=== PATIENT | female | born 1985 | race Caucasian/White ===

== ENCOUNTER 2019-02-20 11:52 | Inpatient (IN) | payer OTHER ==
[~2019-02-20] VITALS: Ht 180.3 cm; Wt 119.7 kg
--- NOTE | 2019-02-20 04:05 | NUR ---
PATIENT REFUSED PICTURE FOR HER WOUND. EXPLAINED TO HER REGARDING FACILITY PROTOCOL, PATIENT STILL REFUSED.
[~2019-02-20 11:52] MED LIST: CLON0.5T PO; DULO60CA45 PO; LEVE500T9 PO; LORA2TAB PO; QUET300T2 PO; ZOLP10TA2 PO
--- NOTE | 2019-02-20 11:56 | NUR ---
PT BIBRA39, SENT [facility] SCHVN FOR FEVER X 2 DAYS. PT C/O RECTAL PAIN, PT IS AAOX4, NOT IN RESPIRATORY DISTRESS, HOOKED TO MONITOR, KEPT RESTED AND COMFORTABLE, WILL CONTINUE TO MONITOR.
--- NOTE | 2019-02-20 12:14 | NUR ---
PT IV LINE ESTABLISHED, BLOOD DRAWN AND SENT TO LAB.
[2019-02-20] MEDS ORDERED: ONDANSETRON HCL/PF 4 MG/2 ML VIAL ONE (12:42)
[2019-02-20] MEDS ORDERED: MORPHINE SULFATE INJ 4 MG/ML DISP.SYRIN ONE ×2 (12:43→12:45)
--- NOTE | 2019-02-20 12:43 | NUR ---
PT SEEN AND EXAMINED BY .
--- NOTE | 2019-02-20 12:56 | NUR ---
AWARE OF PT ALLERGY TO PENICILLINS.
[2019-02-20 12:59] LABS: BASOPHILS # (AUTO) 0.1 /CMM (0.0-0.2); BASOPHILS % (AUTO) 0.4 % (0.0-2.0); EOSINOPHILS % (AUTO) 0.2 % (0.0-6.0); HEMATOCRIT 33 % (33-45); LYMPHOCYTES # (AUTO) 2.1 /CMM (0.8-4.8); MEAN CORPUSCULAR HGB CONC 33 g/dl (31.0-36.0); MEAN CORPUSCULAR VOLUME 90 fL (82-100); MONOCYTES # (AUTO) 1.9 /CMM (0.1-1.30); NEUTROPHILS # (AUTO) 19.3 /CMM (1.8-8.9); NEUTROPHILS % (AUTO) 82.4 % (43.0-81.0); PLATELET COUNT (AUTO) 411 /CMM (150-450); RED BLOOD CELL COUNT(AUTO) 3.69 MIL/uL (4.0-5.2); WHITE BLOOD COUNT (AUTO) 23.4 K/uL (4.3-11.0)
[2019-02-20] MEDS ORDERED: VANCOMYCIN 1 GM in IV D5W 250 ML IV ONE (13:00)
[2019-02-20] MEDS ORDERED: IV NS 0.9% 1,000 ML BAG IV ONE (13:00)
[2019-02-20] MEDS ORDERED: CEFEPIME 1 GM in IV D5W 50 ML IV ONE (13:00)
[2019-02-20] MEDS ORDERED: MORPHINE SULFATE INJ 2 MG/ML DISP.SYRIN IV ONE (13:00)
[2019-02-20 13:11] LABS: CALCIUM, SERUM 8.8 mg/dL (8.5-10.1); CREATININE 0.8 mg/dL (0.6-1.3); POTASSIUM 3.8 mmol/L (3.5-5.1)
[2019-02-20 13:25] LABS: ALBUMIN 2.5 g/dL (3.4-5.0); BILIRUBIN,DIRECT 1.3 mg/dL (0.0-0.2); BILIRUBIN,TOTAL 1.7 mg/dL (0.2-1.0); TOTAL PROTEIN, SERUM 7.6 g/dL (6.4-8.2)
--- NOTE | 2019-02-20 13:40 | NUR ---
PT IS WHEELED TO CT SCAN VIA [facility].
[2019-02-20] MEDS ORDERED: CT SWABBABLE VALVE TRANS SET 1 EA INFUS.SET MC ONE (13:42)
[2019-02-20] MEDS ORDERED: IOHEXOL-300 100 ML VIAL IV ONE (13:42)
[2019-02-20] MEDS ORDERED: IV NS 0.9% 250 ML IV ONE (13:42)
--- NOTE | 2019-02-20 13:47 | NUR ---
CALLED FOR MS BED
--- NOTE | 2019-02-20 14:00 | NUR ---
GOT BED 112-1
--- NOTE | 2019-02-20 14:15 | NUR ---
CALLED [facility] X 2
[2019-02-20] MEDS ORDERED: ALPR2TAB2 PO (14:17)
[2019-02-20] MEDS ORDERED: ARIP20TA4 PO (14:17)
[2019-02-20] MEDS ORDERED: ESCI10TA PO (14:17)
[2019-02-20] MEDS ORDERED: TOPI50TA PO (14:17)
--- NOTE | 2019-02-20 14:27 | NUR ---
CALLED KELLIE FOR REPORT NURSE NOT READY.
--- NOTE | 2019-02-20 14:45 | NUR ---
REPORT GIVEN TO RENATA TAI. AWAITING TRANSFER TO FLOOR.
--- NOTE | 2019-02-20 14:53 | NUR ---
SPOKED TO [facility] ARREDONDO, PT IS APPROVE TO BE ADMITTED
--- NOTE | 2019-02-20 15:25 | NUR ---
RN NOTES RECEIVE PATIENT FROM ER VIA MIGUEL, DX RECTAL ABSCESS, AOX 4, ON ROOM AIR, NO SOB, RESPIRATION UNLABORED, COMPLAIN OF RECTAL PAIN 4/10, REFUSED TO MOVE AND UNABLE TO DO COMPLETE BODY ASSESSMENT. UNABLE TO TAKE PHOTO DUE TO SEVERE PAIN. LEFT AC G18 FLUSHES WELL, SITE CLEAR. UNIT ORIENTATION DONE AND USE OF CALL LIGHT, BED LOW LOCKED, SAFETY MEASURES IN PLACE. ADMIT ORDERS CARRIED OUT. WILL CONT TO MONITOR.
[2019-02-20 15:35] VITALS: BP 94/65
[2019-02-20 16:00] VITALS: BP 94/65
[2019-02-20] MEDS ORDERED: ONDANSETRON HCL/PF 4 MG/2 ML VIAL IVP PRN (17:00)
[2019-02-20] MEDS ORDERED: MAGNESIUM HYDROXIDE 30 ML UDC PO PRN (17:00)
[2019-02-20] MEDS ORDERED: Z GUARD REMEDY 2 OZ OINT TP PRN (17:00)
[2019-02-20] MEDS ORDERED: ZOLPIDEM TARTRATE 5 MG TABLET PO PRN (17:00)
[2019-02-20] MEDS ORDERED: MAG HYDROX/AL HYDROX/SIMETH 30 ML UDC PO PRN (17:00)
[2019-02-20] MEDS ORDERED: HYDROCODONE/APAP 5/325MG 1 EACH TABLET PO PRN (17:00)
[2019-02-20] MEDS ORDERED: ACETAMINOPHEN 325 MG TABLET PO PRN (17:00)
[2019-02-20] MEDS ORDERED: FEE PK DOSING 1 MIN EA MC ONE (17:10)
[2019-02-20] MEDS: DOCUSATE SODIUM 100 MG CAPSULE PO SCH (17:22)
[2019-02-20] MEDS: HYDROMORPHONE INJ 2 MG/ML DISP.SYRIN IV PRN ×2 (17:23→21:24)
[2019-02-20] MEDS: TOPIRAMATE 25 MG TABLET PO SCH (17:23)
[2019-02-20] MEDS: IV NS 0.9% 1,000 ML IV PRN (17:24)
--- NOTE | 2019-02-20 18:49 | NUR ---
RN NOTES PATIENT RESTING COMFORTABLY. ALL NEEDS MET AT THIS TIME. IVF INFUSING WELL. NOT IN ANY DISTRESS. WILL ENDORSE TO NEXT SHIFT FOR ADITYA.
--- NOTE | 2019-02-20 19:25 | NUR ---
MS/RN NOTES PATIENT IN BED, SLEEPING COMFORTABLY AT THIS TIME, EASILY AROUSABLE, A/O X4, NO S/S OF ACUTE DISTRESS NOTED, BREATHING EVEN AND UNLABORED. NO SOB NOTED. PATIENT DENIES ANY PAIN AT THIS TIME. IV SITE WITH NO S/S OF INFECTION INFILTRATION, RUNNING WITH FLUIDS ORDERED, SAFETY MAINTAINED, BED AT THE LOWEST LOCKED POSITION, CLEAN AND DRY. CALL LIGHT WITHIN REACH. WILL CONTINUE TO MONITOR PER PLAN OF CARE.
[2019-02-20 20:00] VITALS: BP 105/54
--- NOTE | 2019-02-20 20:35 | NUR ---
PATIENT NOTED WITH ELEVATED TEMP 102.9. PATIENT DENIED COOLING MEASURE. PRN TYLENOL GIVEN ORDERED. WILL CONTINUE TO MONITOR
[2019-02-20] MEDS: VANCOMYCIN 1.25 GM in IV D5W 250 ML IV SCH (21:01)
[2019-02-20] MEDS: QUETIAPINE FUMARATE 100 MG TABLET PO SCH (21:02)
[2019-02-20] MEDS: LEVETIRACETAM (250 MG) 250 MG TABLET PO SCH (21:02)
--- NOTE | 2019-02-20 21:35 | NUR ---
PATIENT TEMPERATURE DROPPED DOWN TO 100.2 AXILLARY AT THIS TIME, WILL CONTINUE TO MONITOR.
[2019-02-21] MEDS: CEFEPIME 1 GM in IV D5W 50 ML IV SCH ×2 (00:31→12:25)
[2019-02-21 04:00] VITALS: BP 128/63
--- NOTE | 2019-02-21 04:00 | NUR ---
patient refused 4AM vanco trough, risks and benefits explained, patient still refused
--- NOTE | 2019-02-21 04:35 | NUR ---
called pharmacy regarding 5 AM vanco dose, per [facility] pharmacist, OK to give 5 AM vanco dose since patient getting Vanco for sepsis.
[2019-02-21] MEDS: VANCOMYCIN 1.25 GM in IV D5W 250 ML IV SCH ×3 (05:28→21:14)
--- NOTE | 2019-02-21 07:01 | NUR ---
MS/RN NOTES PATIENT IN BED, SLEEPING COMFORTABLY AT THIS TIME, EASILY AROUSABLE, A/O X4, NO S/S OF ACUTE DISTRESS NOTED, BREATHING EVEN AND UNLABORED. NO SOB NOTED. PATIENT DENIES ANY PAIN AT THIS TIME. IV SITE WITH NO S/S OF INFECTION INFILTRATION, RUNNING WITH FLUIDS ORDERED, ALL DUE MEDS GIVEN ORDERED, TOLERATED WELL. PATIENT PERIRECTAL ABSCESS LEAKED WITH PURULENT DRAINAGE, DUE FOR PROCEDURE TODAY, CONSENT SIGNED, KEPT CLEAN AND DRY. SAFETY MAINTAINED, BED AT THE LOWEST LOCKED POSITION, CLEAN AND DRY. CALL LIGHT WITHIN REACH. WILL ENDORSE TO AM SHIFT NURSE FOR ADITYA.
[2019-02-21 08:00] VITALS: BP 120/58
[2019-02-21] MEDS: ESCITALOPRAM OXALATE (10 MG) 10 MG TABLET PO SCH (09:00)
[2019-02-21] MEDS: DOCUSATE SODIUM 100 MG CAPSULE PO SCH ×2 (09:00→17:00)
[2019-02-21] MEDS: TOPIRAMATE 25 MG TABLET PO SCH (09:00)
--- NOTE | 2019-02-21 09:11 | NUR ---
MS RN NOTES PATIENT IS REFUSING TO GIVE BLOOD OR URINE SAMPLE FOR PREOP.
--- NOTE | 2019-02-21 09:25 | NUR ---
MS RN NOTES HAD A PHONE CONVERSATION WITH MORELIA OR NURSE ABOUT THE PATIENT. PATIENT IS REFUSING URINE TEST AND BLOOD TEST , THE SURGERY CANCELLED.
--- NOTE | 2019-02-21 09:48 | NUR ---
MS RN NOTES PATIENT HAD A CONVERSATION WITH SURGEON AND ANESTHESIOLOGIST. SHE WILL HAVE SURGERY AT 1:30 . OK TO GIVE MEDS WITH WATER.
[2019-02-21] MEDS: LEVETIRACETAM (250 MG) 250 MG TABLET PO SCH ×2 (10:19→21:15)
--- NOTE | 2019-02-21 10:19 | NUR ---
MS RN NOTES KERPRA 4 TABLET WAS DROPPED ON THE FLOOR AND OBTAINED ANOTHER 4 TABLET FROM uMentioned.
[2019-02-21] MEDS: ARIPIPRAZOLE 5 MG TABLET PO SCH (10:23)
[2019-02-21] MEDS: ALPRAZOLAM 1 MG TABLET PO SCH ×3 (10:37→18:30)
--- NOTE | 2019-02-21 11:35 | NUR ---
MS RN NOTES PATIENT TEMPERATURE IS 100 F AND SHE REFUSED ANY ICE PACK TO DECREASE THE TEMP.
--- NOTE | 2019-02-21 11:47 | NUR ---
MS RN NOTES KAR FROM LAB WAS IN UNIT TO TAKE THE BLOOD SAMPLE FOR VANCO AND PATIENT REFUSED IT. WILL INFORM THE PHARMACY.
--- NOTE | 2019-02-21 13:30 | NUR ---
MS RN NOTES PT IS REFUSING FOR BLOOD DRAWN . URINE SAMPLE OBTAINED AND NOTIFIED LAB. CALLED SONIA MEJÍA TO GIVE VANCO WITHOUT VANCO THROUGH LEVEL. NOTIFIED PHARMACY.
--- NOTE | 2019-02-21 15:09 | NUR ---
MS RN NOTES (OR ) HAD A CONVERSATION WITH ABIDA THIBODEAUX ABOUT THE PATIENT WANTS TO HAVE THE SURGERY TOMORROW AND RESUME THE NUTRITION. MORELIA HAD A CONVERSATION WITH DR. LENTZ AND HE IS GOING TO TALK TO THE PATIENT TOMORROW MORNING. PER MD ORDER ITS IS OK FOR PATIENT TO HAVE CLEAR LIQUID.
--- NOTE | 2019-02-21 15:12 | NUR ---
MS RN NOTES RECEIVED A CALL FROM [facility], PATIENT HAS MRSA POSITIVE NARE. WILL PUT PATIENT ON CONTACT ISOLATION.
[2019-02-21 16:00] VITALS: BP 122/64
[2019-02-21] MEDS: HYDROMORPHONE INJ 2 MG/ML DISP.SYRIN IV PRN ×2 (16:21→23:36)
--- NOTE | 2019-02-21 16:31 | NUR ---
MS RN NOTES PATIENT REFUSED TO BE CHANGED. THE TEMPERATURE IS 101.4 AND SHE REFUSES ANY MEDS AND ICE PACK FOR THE HIGH TEMPERATURE.
--- NOTE | 2019-02-21 16:58 | NUR ---
Patient is alert, states she is currently homeless. She was admitted from [facility] in [place] [phone] with chief complaint of fever and rectal pain. Spoke with patient, states her legs are wabbly when walking and she needs assistance with adl's. Current dc plan is to return to [facility] on voluntary admission. Addendum: 02/21/19 at 2219 by MICHEAL BOYD RN Amended: Links added.
--- NOTE | 2019-02-21 17:24 | NUR ---
MS RN NOTES PUT ICE PACK ON BILATERAL AXILA TO REDUCE THE TEMPERATURE.
--- NOTE | 2019-02-21 18:32 | NUR ---
MS RN NOTES COLASE DID NOT ADMINISTRATED, PT HAD BOWEL MOVEMENT.
--- NOTE | 2019-02-21 19:05 | NUR ---
MS RN OPENING NOTES: RECEIVED PATIENT, LYING IN BED, SLEEPING, AROUSABLE BUT LETHARGIC, BUT ANSWERS WHEN ASK HER NAME. TURN THE BED ALARM ON. BED IN LOWEST AND LOCKED POSITION. WITH DIAPER ON. ON CONTACT PRECAUTION. CALL LIGHT WITHIN REACH.
[2019-02-21 20:00] VITALS: BP 121/57
--- NOTE | 2019-02-21 20:11 | NUR ---
RESEARCH EDITOR CAME TO DRAW BLOOD, PATIENT REFUSED ACCORDING TO THE RESEARCH EDITOR.
[2019-02-21] MEDS: QUETIAPINE FUMARATE 100 MG TABLET PO SCH ×2 (21:15→21:29)
--- NOTE | 2019-02-21 21:28 | NUR ---
BED ALARM ON.
--- NOTE | 2019-02-21 21:29 | NUR ---
PATIENT REFUSED THE SEROQUEL PILLS.
--- NOTE | 2019-02-21 21:30 | NUR ---
CALL LIGHT WITHIN REACH.
--- NOTE | 2019-02-21 22:12 | NUR ---
Patient is alert, states she is currently homeless. She was admitted from [facility] in [place] [phone] with chief complaint of fever and rectal pain. States her legs are wabbly when walking and she needs assistance with adl's. Current dc plan is to return to [facility] on voluntary admission. Addendum: 02/21/19 at 2219 by MICHEAL BOYD RN Amended: Links added.
[2019-02-21] MEDS: IV NS 0.9% 1,000 ML IV PRN (22:21)
--- NOTE | 2019-02-21 23:21 | NUR ---
IV PUMP IS CONSTANTLY BEEPING PATIENT KEEPS ON BENDING HER LEFT ARM, ADVISED PATIENT NOT TO DO IT, PATIENT GOT MAD AND SCREAMING ANS SAYING FOUL WORDS, AND SHE REFUSED TO STRAIGHT HER ARM. EXPLAINED THAT THE ANTIBIOTIC VANCO IS RUNNING. OFFERED TO HAVE ANOTHER IV SITE INSERTION, PATIENT REFUSED.
[2019-02-22] MEDS: CEFEPIME 1 GM in IV D5W 50 ML IV SCH ×2 (00:35→11:36)
[2019-02-22 04:00] VITALS: BP 148/76
[2019-02-22] MEDS: VANCOMYCIN 1.25 GM in IV D5W 250 ML IV SCH (04:16)
--- NOTE | 2019-02-22 05:00 | NUR ---
MS RN CLOSING NOTES: PATIENT IS RESTING COMFORTABLY IN BED. A/O X4. NO ACUTE EVENTS OVERNIGHT. JUST MEDICATED WITH DILAUDID 1MG IV FOR PAIN. NO SEIZURES NOTED. 4 SIDERAILS UP PER PATIENT'S REQUEST. VITALS STABLE. AFEBRILE. CONTACT ISOLATION MAINTAINED. CALL LIGHT WITHIN REACH. BED IN LOWEST AND LOCKED POSITION.
[2019-02-22] MEDS: HYDROMORPHONE INJ 2 MG/ML DISP.SYRIN IV PRN ×3 (06:18→18:26)
[2019-02-22 06:48] LABS: BASOPHILS # (AUTO) 0.1 /CMM (0.0-0.2); BASOPHILS % (AUTO) 0.4 % (0.0-2.0); EOSINOPHILS % (AUTO) 0.9 % (0.0-6.0); HEMATOCRIT 30 % (33-45); HEMOGLOBIN 10.1 g/dL (11.5-14.8); LYMPHOCYTES # (AUTO) 1.6 /CMM (0.8-4.8); LYMPHOCYTES % (AUTO) 11.1 % (20.0-44.0); MEAN CORPUSCULAR HGB CONC 33 g/dl (31.0-36.0); MEAN CORPUSCULAR VOLUME 90 fL (82-100); MONOCYTES # (AUTO) 0.9 /CMM (0.1-1.30); NEUTROPHILS % (AUTO) 81.6 % (43.0-81.0); PLATELET COUNT (AUTO) 383 /CMM (150-450); RED BLOOD CELL COUNT(AUTO) 3.36 MIL/uL (4.0-5.2); WHITE BLOOD COUNT (AUTO) 14.7 K/uL (4.3-11.0)
[2019-02-22 08:00] VITALS: BP_SYST 113; BP_SYST 117; BP_DIAS 57
[2019-02-22 08:13] LABS: CALCIUM, SERUM 8.4 mg/dL (8.5-10.1); CREATININE 1.1 mg/dL (0.6-1.3); MAGNESIUM 2.3 mg/dL (1.8-2.4); PHOSPHORUS 4.8 mg/dL (2.5-4.9)
[2019-02-22] MEDS: TOPIRAMATE 25 MG TABLET PO SCH ×2 (09:00→09:15)
[2019-02-22] MEDS: DOCUSATE SODIUM 100 MG CAPSULE PO SCH ×3 (09:00→16:35)
[2019-02-22] MEDS: ALPRAZOLAM 1 MG TABLET PO SCH ×4 (09:00→17:02)
[2019-02-22] MEDS: ESCITALOPRAM OXALATE (10 MG) 10 MG TABLET PO SCH ×2 (09:00→09:15)
[2019-02-22] MEDS: ARIPIPRAZOLE 5 MG TABLET PO SCH (09:15)
--- NOTE | 2019-02-22 09:26 | NUR ---
PATIENT REFUSED MEDICATIONS SHE ONLY TAKES WHAT SHE ALWAYS TAKES.KATT NOT AVAILABLE. REQUESTED FROM THE PHARMACY
[2019-02-22] MEDS: LEVETIRACETAM (250 MG) 250 MG TABLET PO SCH ×2 (09:49→20:42)
[2019-02-22 12:00] VITALS: BP 117/54
--- NOTE | 2019-02-22 12:38 | NUR ---
patient refused to eat since breakfast and pharmacy called about the Bactroban order, charge nurse cannot order the medication, needs Dr Whittington to order it ,Dr Whittington paged and message l;eft left with the exchange, awaiting response
--- NOTE | 2019-02-22 12:42 | NUR ---
pharmacy called for the vancomycin trough result and will adjust the dose.
--- NOTE | 2019-02-22 13:31 | NUR ---
Dr Whittington in and informed about the patient not eating at all and the bactroban orde r for MRSA of the nares and ordered,
[2019-02-22 16:00] VITALS: BP 102/55
--- NOTE | 2019-02-22 16:24 | NUR ---
xanax on hold as patient is drowsy and arousable
[2019-02-22] MEDS: IV NS 0.9% 1,000 ML IV PRN (16:58)
[2019-02-22 18:00] VITALS: BP 121/75
--- NOTE | 2019-02-22 18:39 | NUR ---
xanax was given after cleaning the patient as she became awake and anxious, slept thereafter, Surgery Physician in andtalked to the patient about the procedure needs to be done and the martin rectal abcsess and explained the benifits and the procedure.patient said fine.
--- NOTE | 2019-02-22 18:50 | NUR ---
refused dinner and Dr Whittington is aware.
--- NOTE | 2019-02-22 19:20 | NUR ---
RN Opening Notes Received patient from ABIDA Jacobs at 1915 at bedside. Patient in bed, sleeping comfortably at this time, easily arousable to voice. No signs of respiratory distress noted. No shortness of breath noted. No signs of facial grimacing indicating pain or discomfort at this time. IV site inspected with no signs or symptoms of infection/infiltration, running IVF as ordered. Safety precautions implemented; call light within reach, bed lowest position, bed locked, side rails up, bed alarm on. Will continue to monitor.
[2019-02-22 20:00] VITALS: BP_SYST 114; BP_DIAS 68; BP_DIAS 85
--- NOTE | 2019-02-22 20:10 | NUR ---
RN Notes Patient refused to have skin checks and refused to have martin-rectal abscess checked.
--- NOTE | 2019-02-22 20:40 | NUR ---
RN Notes Patient was insisting on walking to the bathroom at 2034. She informed the INFORMATION TECHNOLOGY TEACHER she can walk. I informed patient she cannot walk as per Charge Nurse, Kaylah. Charge Nurse Kaylah also educated patient she is bed ridden. Patient starts to yell at staff and states she will continue to sit up and dangle her legs if she does not go to the restroom. Patient continues to yell. guard lieutenant is called and he arrives. Patient is now compliant at this time. Patient understands she can go in the diaper and we will change her accordingly as needed.
[2019-02-22] MEDS: MUPIROCIN OINT 2% 22 GM TUBE SCH (20:43)
[2019-02-22] MEDS: QUETIAPINE FUMARATE 100 MG TABLET PO SCH (21:00)
--- NOTE | 2019-02-22 21:00 | NUR ---
RN Notes Patient refused seroquel medication. Explained to the patient about her seroquel meds. Patient insists on refusing.
[2019-02-23] MEDS: CEFEPIME 1 GM in IV D5W 50 ML IV SCH ×2 (00:12→11:19)
[2019-02-23] MEDS: HYDROMORPHONE INJ 2 MG/ML DISP.SYRIN IV PRN ×4 (02:17→20:17)
--- NOTE | 2019-02-23 02:18 | NUR ---
RN Notes Patient requested dilaudid 1 mg via IV. vitals stable. explained the risks and benefits of medication. patient understands it may cause resp depression, drop in vitals. patient understands risks and wants to continue with administration. will continue to monitor.
[2019-02-23 04:00] VITALS: BP 123/67
--- NOTE | 2019-02-23 06:22 | NUR ---
RN Closing Notes Patient is currently resting comfortably in bed. A/O x 4. Patient able to state needs. No acute events occurred during the shift. Patient only received Dilaudid 1mg IV for pain management. No seizures noted. Vitals stable. Side rails are up x4 per patient's request. Contact isolation maintained throughout. Safety precautions implemented; call light within reach, bed locked, bed lowest position, bed alarm on. Will continue to monitor and then will endorse to daysarft nurse for continuity of care.
--- NOTE | 2019-02-23 07:24 | NUR ---
MS RN OPENING NOTE PATIENT IN BED RESTING COMFORTABLY. PATIENT IN NO ACUTE DISTRESS. NO SOB NOTED. PATIENT BREATHING IS EVEN AND UNLABORED. PATIENT IN NO PAIN AT THIS TIME. SAFETY PRECAUTIONS IN PLACE. BED ALARM IS ON. CONTACT ISOLATION MAINTAINED. PATIENT BED IS LOCKED AND IN LOWEST POSITION. CALL LIGHT WITHIN REACH. WILL CONTINUE TO MONITOR.
[2019-02-23] MEDS: ESCITALOPRAM OXALATE (10 MG) 10 MG TABLET PO SCH (09:00)
[2019-02-23] MEDS: DOCUSATE SODIUM 100 MG CAPSULE PO SCH ×2 (09:00→16:20)
[2019-02-23] MEDS: TOPIRAMATE 25 MG TABLET PO SCH (09:35)
[2019-02-23] MEDS: ARIPIPRAZOLE 5 MG TABLET PO SCH (09:35)
[2019-02-23] MEDS: LEVETIRACETAM (250 MG) 250 MG TABLET PO SCH ×2 (09:35→20:16)
[2019-02-23] MEDS: ALPRAZOLAM 1 MG TABLET PO SCH ×3 (09:36→16:47)
[2019-02-23] MEDS: MUPIROCIN OINT 2% 22 GM TUBE SCH ×2 (09:40→20:28)
[2019-02-23 10:29] VITALS: BP 112/74
[2019-02-23 11:14] LABS: BASOPHILS # (AUTO) 0.1 /CMM (0.0-0.2); BASOPHILS % (AUTO) 0.6 % (0.0-2.0); EOSINOPHILS % (AUTO) 1.2 % (0.0-6.0); HEMATOCRIT 31 % (33-45); HEMOGLOBIN 10.3 g/dL (11.5-14.8); LYMPHOCYTES # (AUTO) 2.1 /CMM (0.8-4.8); LYMPHOCYTES % (AUTO) 22.3 % (20.0-44.0); MEAN CORPUSCULAR HGB CONC 33 g/dl (31.0-36.0); MEAN CORPUSCULAR VOLUME 90 fL (82-100); MONOCYTES # (AUTO) 0.6 /CMM (0.1-1.30); MONOCYTES % (AUTO) 6.5 % (2.0-12.0); NEUTROPHILS # (AUTO) 6.6 /CMM (1.8-8.9); NEUTROPHILS % (AUTO) 69.4 % (43.0-81.0); PLATELET COUNT (AUTO) 456 /CMM (150-450); RED BLOOD CELL COUNT(AUTO) 3.42 MIL/uL (4.0-5.2); WHITE BLOOD COUNT (AUTO) 9.5 K/uL (4.3-11.0)
[2019-02-23 12:00] VITALS: BP 108/71
[2019-02-23 12:24] LABS: ALBUMIN 2.1 g/dL (3.4-5.0); BILIRUBIN,TOTAL 0.4 mg/dL (0.2-1.0); CALCIUM, SERUM 8.4 mg/dL (8.5-10.1); POTASSIUM 4.2 mmol/L (3.5-5.1); TOTAL PROTEIN, SERUM 6.6 g/dL (6.4-8.2)
[2019-02-23] MEDS: IV NS 0.9% 1,000 ML IV PRN (14:05)
[2019-02-23] MEDS: VANCOMYCIN 1 GM in IV D5W 250 ML IV SCH ×2 (15:57→22:32)
[2019-02-23 16:00] VITALS: BP 101/63
[2019-02-23 16:31] VITALS: BP 113/69
--- NOTE | 2019-02-23 18:12 | NUR ---
MS RN CLOSING NOTE PATIENT IN BED RESTING COMFORTABLY. PATIENT IN NO ACUTE DISTRESS. NO SOB NOTED. PATIENT BREATHING IS EVEN AND UNLABORED. PATIENT KEPT CLEAN, DRY, AND COMFORTABLE THROUGHOUT SHIFT. PATIENT EXTREMITIES OFFLOADED WITH PILLOWS, TURNED AND REPOSITIONED. PATIENT TO BE NPO AFTER MIDNIGHT FOR INCISION AND DEBRIDEMENT TOMORROW. PATIENT NEEDS AND CONCERNS ADDRESSED. PATIENT BED IS LOCKED AND IN LOWEST POSITION. CALL LIGHT WITHIN REACH. WILL ENDORSE CARE TO PM SHIFT FOR ADITYA.
--- NOTE | 2019-02-23 19:05 | NUR ---
RN MS OPENING NOTES RECEIVED PATIENT IN BED AWAKE ALERT AND ORIENTED X3, RESPIRATIONS EVEN AND UNLABORED WITH EQUAL RISE AND FALL OF CHEST, IV SITE TO LEFT AC INTACT AND PATENT, NO REDNESS, NO INFILTRATION PRESENT, ORIENTED TO STAFF AND CALL LIGHT AND KEPT WITHIN REACH, SAFETY PRECAUTIONS IN PLACE, LOW BED AND LOCKED, ALL NEEDS ATTENDED AT THIS TIME, DISCUSSED PLAN OF CARE, PATIENT VERBALIZES SHE UNDERSTANDS NPO STATUS AT MIDNIGHT. WILL CONTINUE TO MONITOR.
[2019-02-23 20:00] VITALS: BP 104/62
--- NOTE | 2019-02-23 20:17 | NUR ---
RN MS NOTES PATIENT COMPLAINT OF PAIN STATES "10/10 RECTAL AREA AND ALL OVER BODY CAN I HAVE DILAUDID" VS WNL. DILAUDID PRN GIVEN ORDERED 1MG DILAUDID 1MG/0.5ML WASTED AND WITNESS WITH ANOTHER RN. WILL CONTINUE TO MONITOR FOR EFFECTIVENESS
--- NOTE | 2019-02-23 20:36 | NUR ---
RN MS NOTES PATIENT REFUSED BACTROBAN OINT X3, DESPITE EDUCATION STATES " NO I DONT WANT ANYTHING UP MY NOSE" PATIENT ALSO REFUSED BODY ASSESSMENT AND SUNDAY PICTURES STATES " I ALREADY SAID NO TO PICTURES".
[2019-02-23] MEDS: QUETIAPINE FUMARATE 100 MG TABLET PO SCH (22:32)
[2019-02-24] MEDS: CEFEPIME 1 GM in IV D5W 50 ML IV SCH ×2 (00:45→11:20)
[2019-02-24 04:44] VITALS: BP 123/73
--- NOTE | 2019-02-24 05:22 | NUR ---
RN MS NOTES PATIENT REFUSED X3, TO HAVE BLOOD DRAWN FOR AM LABS, EXPLAINED PURPOSE OF LAB DRAW , AND TYPE AND SCREEN FOR SCHEDULED PROCEDURE PATIENT REFUSED IGNORING STAFF AND STATES "NO" , LAB DRAW WAS ATTEMPTED BY TWO TECHNICIANS AND PATIENT CONTINUES TO IGNORE STAFF AND REFUSING. ASKED PATIENT IF LAB DRAWN COULD BE DONE AT A LATER TIME, ONCE AGAIN IGNORED STAFF. WILL ENDORSE TO NEXT SHIFT TO ASK PATIENT AT A LATER TIME.
[2019-02-24] MEDS: VANCOMYCIN 1 GM in IV D5W 250 ML IV SCH ×2 (06:00→18:53)
[2019-02-24] MEDS: IV NS 0.9% 1,000 ML IV PRN ×2 (06:01→18:46)
[2019-02-24] MEDS: HYDROMORPHONE INJ 2 MG/ML DISP.SYRIN IV PRN ×3 (06:17→17:15)
--- NOTE | 2019-02-24 06:17 | NUR ---
RN MS NOTES PATIENT COMPLAINT OF PAIN STATES "10/10 RECTAL AREA CAN I HAVE DILAUDID" VS WNL. DILAUDID PRN GIVEN ORDERED 1MG DILAUDID 1MG/0.5ML WASTED AND WITNESS WITH ANOTHER RN. WILL CONTINUE TO MONITOR FOR EFFECTIVENESS
--- NOTE | 2019-02-24 06:47 | NUR ---
RN MS CLOSING NOTES PATIENT IN BED AWAKE ALERT AND ORIENTED X3, RESPIRATIONS EVEN AND UNLABORED WITH EQUAL RISE AND FALL OF CHEST, IV SITE TO LEFT AC#18 INTACT AND PATENT, NO REDNESS, NO INFILTRATION PRESENT,IVF RUNNING ORDERED, ABX GIVEN ORDERED NO ADVERSE REACTIONS CALL LIGHT KEPT WITHIN REACH, SAFETY PRECAUTIONS IN PLACE, LOW BED AND LOCKED, ALL NEEDS ATTENDED AT THIS TIME, DISCUSSED PLAN OF CARE AND ENCOURAGED FOR LAB DRAW, PATIENT HAS BEEN NPO SINCE MIDNIGHT, WILL CONTINUE TO MONITOR ATTEND TO NEEDS AND ENDORSE TO NEXT SHIFT.
--- NOTE | 2019-02-24 07:25 | NUR ---
MS RN INITIAL NOTES Report received at bedside. Patient received in bed with contact isolation for MRSA nares. Patient is awake, alert and verbally responsive. Safety measures in place .Will continue to monitor and assess patient
[2019-02-24 08:00] VITALS: BP 112/64
[2019-02-24] MEDS: LEVETIRACETAM (250 MG) 250 MG TABLET PO SCH ×2 (08:54→21:35)
[2019-02-24] MEDS: ARIPIPRAZOLE 5 MG TABLET PO SCH (08:54)
[2019-02-24] MEDS: ALPRAZOLAM 1 MG TABLET PO SCH ×3 (08:54→16:31)
[2019-02-24] MEDS: TOPIRAMATE 25 MG TABLET PO SCH (09:00)
[2019-02-24] MEDS: MUPIROCIN OINT 2% 22 GM TUBE SCH ×2 (09:00→21:35)
[2019-02-24] MEDS: DOCUSATE SODIUM 100 MG CAPSULE PO SCH ×2 (09:00→16:31)
--- NOTE | 2019-02-24 09:00 | NUR ---
MS RN REFUSAL NOTES Patient refused few medications. Explained risks vs benefits but patient still refused. Will notify provider
[2019-02-24] MEDS: ESCITALOPRAM OXALATE (10 MG) 10 MG TABLET PO SCH (09:01)
[2019-02-24 12:00] VITALS: BP 106/68
--- NOTE | 2019-02-24 12:13 | NUR ---
Social service consult requested by VERITO Whittington for possible homelessness. Pt. is a 33 year old female who was admitted to [facility] for sepsis. PHONG met with the pt. bedside. Pt. is alert and oriented x4. Pt. is not very cooperative and agitated during the assessment. Pt. reluctantly answers questions that are asked of her. When asked pt. where does she live, pt. stated [place]. PHONG informed pt. as to where in [place], pt. stated [place] PHONG further asked pt. her address, as to pt. replied, " leave me alone, you are asking too many questions right now." PHONG unable to further assess pt. due to pt. being uncooperative at this time. PHONG updated KELLIE CRSiddhartha Rosales.
--- NOTE | 2019-02-24 13:40 | NUR ---
MS RN NOTES Renetta Whittington aware of patient's refusal to treatment. Procedure to be done today per A.P. Will make patient aware.
[2019-02-24 16:00] VITALS: BP 97/48
--- NOTE | 2019-02-24 17:56 | NUR ---
MS RN NOTES Pharmacist ([facility]) called to inquire the plan for Vanco IV treatment. Patient continues to refuse blood draw and unable to get blood for Vanco peak and trough. Pharmacist advised that vanco is needed if the procedure is planned for tonight. Vanco 1gm IV will be sent to be given to patient for the procedure.
[2019-02-24 18:48] LABS: BASOPHILS # (AUTO) 0.1 /CMM (0.0-0.2); BASOPHILS % (AUTO) 0.8 % (0.0-2.0); EOSINOPHILS % (AUTO) 1.3 % (0.0-6.0); HEMATOCRIT 34 % (33-45); HEMOGLOBIN 10.9 g/dL (11.5-14.8); LYMPHOCYTES % (AUTO) 22.9 % (20.0-44.0); MEAN CORPUSCULAR HGB CONC 33 g/dl (31.0-36.0); MEAN CORPUSCULAR VOLUME 90 fL (82-100); MONOCYTES # (AUTO) 0.7 /CMM (0.1-1.30); MONOCYTES % (AUTO) 7.8 % (2.0-12.0); NEUTROPHILS # (AUTO) 5.9 /CMM (1.8-8.9); NEUTROPHILS % (AUTO) 67.2 % (43.0-81.0); PLATELET COUNT (AUTO) 488 /CMM (150-450); RED BLOOD CELL COUNT(AUTO) 3.72 MIL/uL (4.0-5.2); WHITE BLOOD COUNT (AUTO) 8.8 K/uL (4.3-11.0)
[2019-02-24 18:57] LABS: CALCIUM, SERUM 8.6 mg/dL (8.5-10.1); CREATININE 0.9 mg/dL (0.6-1.3); MAGNESIUM 2.1 mg/dL (1.8-2.4); PHOSPHORUS 5.3 mg/dL (2.5-4.9); POTASSIUM 4.1 mmol/L (3.5-5.1)
--- NOTE | 2019-02-24 19:00 | NUR ---
MS RN CLOSING NOTES Patient remained in bed, intermittently sleeping, verbally responsive. Patient have episodes of refusal of care but was able to convince to have blood draw in early pm after receiving a call from Gillian (Assistant To The Vice President). Gillian spoke with Dr. Roe and procedure is scheduled to be done tomorrow 1700. Renetta Whittington made aware with new orders of [facility] soft diet and NPO 8 hours prior to procedure. Patient agreed to have blood draw after informing her that she is able to take fluids. Juices and ice water provided to patient. Kept patient clean and dry. Pain management given as needed. No SOB/labored breathing noted or reported. Not in any type of distress. Safety measures in place. Bed in lowest position with alarm on and call light within reach. Will endorse to oncoming shift nurse.
--- NOTE | 2019-02-24 19:30 | NUR ---
MS RN NOTE: RECEIVED PT ON BED ALERT AND ORIENTED X3. ABLE TO MAKE NEEDS KNOWN. NO APPARENT DISTRESS NOTED. NO COMPLAINTS OF PAIN OR DISCOMFORT AT THIS TIME. ON ROOM AIR, NO SOB NOTED. IV ON LEFT ANTECUBITAL #18 INTACT AND PATENT, IVF INFUSING WELL. KEPT CLEAN, DRY AND COMFORTABLE. CALL LIGHT PLACED WITHIN REACH. SAFETY AND FALL PRECAUTIONS OBSERVED AND MAINTAINED. WILL CONTINUE TO MONITOR PT.
[2019-02-24 20:00] VITALS: BP 119/66
[2019-02-24] MEDS: QUETIAPINE FUMARATE 100 MG TABLET PO SCH (21:35)
[2019-02-25] VITALS (8 sets, daily range): BP systolic 96–117; BP diastolic 53–66
[2019-02-25] MEDS: CEFEPIME 1 GM in IV D5W 50 ML IV SCH ×3 (00:33→23:31)
[2019-02-25] MEDS: VANCOMYCIN 1 GM in IV D5W 250 ML IV SCH ×2 (02:15→10:00)
--- NOTE | 2019-02-25 06:41 | NUR ---
MS RN NOTE: NO CHANGES NOTED THROUGHOUT THE SHIFT. NO APPARENT DISTRESS NOTED. COMPLAINTS OF PAIN ON PERINEAL AREA, PAIN MEDS WILL BE GIVEN. NO SOB NOTED. IV ON LEFT ANTECUBITAL #18 INTACT AND PATENT, IVF INFUSING WELL. KEPT CLEAN, DRY AND COMFORTABLE. SAFETY AND FALL PRECAUTIONS OBSERVED AND MAINTAINED. WILL ENDORSE TO DAY SHIFT RN FOR CONTINUITY OF CARE
[2019-02-25] MEDS: HYDROMORPHONE INJ 2 MG/ML DISP.SYRIN IV PRN ×4 (06:50→20:41)
[2019-02-25] MEDS: TOPIRAMATE 25 MG TABLET PO SCH ×2 (08:08→09:00)
[2019-02-25] MEDS: DOCUSATE SODIUM 100 MG CAPSULE PO SCH ×3 (08:08→17:00)
[2019-02-25] MEDS: LEVETIRACETAM (250 MG) 250 MG TABLET PO SCH ×2 (08:08→20:42)
[2019-02-25] MEDS: ARIPIPRAZOLE 5 MG TABLET PO SCH (08:08)
[2019-02-25] MEDS: ESCITALOPRAM OXALATE (10 MG) 10 MG TABLET PO SCH ×2 (08:09→09:00)
[2019-02-25] MEDS: ALPRAZOLAM 1 MG TABLET PO SCH ×3 (08:09→17:00)
[2019-02-25] MEDS: MUPIROCIN OINT 2% 22 GM TUBE SCH ×2 (09:00→20:50)
[2019-02-25] MEDS ORDERED: MIDAZOLAM HCL 2 MG/2ML VIAL ONE (17:56)
[2019-02-25] MEDS ORDERED: FAMOTIDINE/PF INJ 20 MG/2 ML VIAL IV ONE (17:57)
[2019-02-25] MEDS ORDERED: FENTANYL PF 100MCG/2ML AMPUL ONE (17:57)
[2019-02-25] MEDS: VANCOMYCIN 0.75 GM in IV D5W 250 ML IV SCH (18:00)
[2019-02-25] MEDS ORDERED: CLINDAMYCIN 900 MG/6 ML VIAL ONE (18:15)
--- NOTE | 2019-02-25 19:00 | NUR ---
PATIENT IN OR. NO SIGNIFICANT CHANGES THROUGHOUT SHIFT. NO SEIZURES NOTED. DENIED SUICIDE IDEATION. ENDORSED TO NOC ABIDA ORLANDO
[2019-02-25] MEDS ORDERED: HYDROMORPHONE 1 MG/1 ML DISP.SYRIN ONE (19:05)
--- NOTE | 2019-02-25 19:10 | NUR ---
REPORT RECIEVED FROM CHENCHO TAI. WILL AWAIT PT RETURN FROM OR TO ASSUME CARE.
--- NOTE | 2019-02-25 19:35 | NUR ---
POST OP PT TO RETURN REPORT RECIEVED FROM MARIA TAI FROM OR. PT HAD SUCCESSFUL I AND d OF ABSCESS PERFORMED BY DR. LENTZ.
--- NOTE | 2019-02-25 19:55 | NUR ---
PT RETURNED FROM OR TO ROOM 113-1 PT RETURNED FORM OR IN STABLE CONDITION. PT IS AWAKE AND ALERTX3. PT STATING "IM SO HUNGRY. I HAVENT EATEN ALL DAY." POST OP VITALS STARTED. NEW ORDERS RECIEVED. PT IN BED SUPINE ON ROOM AIR. VSS. PT HAS SURGICAL ABD PAD DRESSING COVERING RECTUM TO BUTTOUCKS THAT IS CDI WITH NO S/S OF BLEEDING OR DRAINGAGE. WILL CONT TO MONITOR.
[2019-02-25] MEDS: QUETIAPINE FUMARATE 100 MG TABLET PO SCH (20:42)
--- NOTE | 2019-02-25 23:54 | NUR ---
02/25/19 AM LABS CANCELLED. LAB CALLED AND STATE THAT THE PATIENT REFUSED AM LABS FROM THIS AM AND THEY ATTEMPTED TO COLLECT IT ON THREE SEPARATE OCCASIONS THROUGHOUT THE DAY BUT PATIENT REFUSED EACH TIME SO THEY HAD TO CANCEL THE ORDERS.
[2019-02-26] MEDS: VANCOMYCIN 0.75 GM in IV D5W 250 ML IV SCH ×3 (02:19→17:21)
[2019-02-26] MEDS: HYDROMORPHONE INJ 2 MG/ML DISP.SYRIN IV PRN ×4 (02:24→17:21)
--- NOTE | 2019-02-26 02:40 | NUR ---
pt c/o midline hurting. site flushes but appears minorly swollne and somewhat hard to touch. pt became angry and accusatory stating, "You don't know what your doing. Dont touch me." after being heplocked Charge nurse julianna to be informed when he returns from lunch. pt left in room with bed down locked. sr x2 call light in reach. vancomycin infusion stopped. iv midline to left upper arm heplocked.
--- NOTE | 2019-02-26 03:30 | NUR ---
CHARGE NURSE IN TO SEE PT. PT REFUSING; NEW IV INSERTION. braden rn in to see patient. assessed iv line and patient still complaining of burning at the iv site. pt refusing new iv insertion. after reviewing with the patient need to start a new iv to get needed antibiotics rx by doctor pt states "I really don't want to do anything right now. Maybe you can try later."
--- NOTE | 2019-02-26 03:50 | NUR ---
ASSIGNMENT CHANGED REPORT GIVEN TO SHERIE TAI TO ASSUME CARE.
--- NOTE | 2019-02-26 03:59 | NUR ---
RN MS NOTES ASSUMED ADITYA FROM ABIDA ORLANDO. PATIENT SLEEPING IN BED. IN NO DISTRESS. EASILY AROUSABLE. ASKED IF I CAN START A NEW IV TO GIVE ANTIBIOTICS BUT PATIENT REFUSED AND STATED SHE JUST WANTS TO SLEEP. WILL CONTINUE TO MONITOR.
[2019-02-26 04:00] VITALS: BP 105/59
--- NOTE | 2019-02-26 04:40 | NUR ---
RN MS NOTES DR. ERICKSON MADE AWARE OF PATIENT'S REFUSAL FOR NEW IV. INFORMED DR. ERICKSON THAT PATIENT MISSED VANCO DUE TO REFUSING TO USE MIDLINE AND/OR PUTTING A NEW IV ACCESS. NO NEW ORDERS. WILL CONTINUE TO MONITOR.
--- NOTE | 2019-02-26 06:51 | NUR ---
RN MS CLOSING NOTES PATIENT RESTING IN BED. IN NO DISTRESS. BREATHING EVEN AND UNLABORED. NO SOB NOTED. ON ROOM AIR. CURRENTLY WITH NO COMPLAINTS OF PAIN OR DISCOMFORT. SABINO MIDLINE INTACT AND PATENT BUT PATIENT STILL COMPLAINS OF SLIGHT DISCOMFORT. DRESSING ON RECTAL SOILED. REINFORCED WITH ABD PAD. DRESSING TO COME OFF 48 HOURS POSTOP. ALL OTHER NEEDS ATTENDED TO. SAFETY MEASURES IN PLACE. CALL LIGHT WITHIN REACH. WILL ENDORSE TO ONCOMING NURSE FOR ADITYA.
--- NOTE | 2019-02-26 06:51 | NUR ---
RN MS NOTES PATIENT REFUSED BLOOD DRAW THIS AM.
--- NOTE | 2019-02-26 07:56 | NUR ---
RN OPENING NOTES RECEIVED PATIENT RESTING IN BED COMFORTABLY. SHE IS AOX3, VERBAL, AND ON BEDREST. SHE IS ON RA, TOLERATING WELL, NO S/SX OF RESP DISTRESS OR SOB. SHE HAS A SABINO MIDLINE, INTACT AND PATENT. PER NIGHTSHIFT RN, PT COMPLAINT OF SUDDEN PAIN AT THE IV SITE AND IS CURRENTLY REFUSING NS. SHE IS ON A MECHANICAL SOFT DIET, TOLERATING WELL. SURGICAL WOUND IN PERIRECTAL AREA IS INTACT, PER DR. LENTZ, LEAVE DRESSING PACKED FOR 48-72 HOURS, WILL MONITOR FOR ANY CHANGES. SAFETY MEASURES HAVE BEEN IMPLEMENTED, CALL LIGHT IS WITHIN REACH, BED IS IN LOWEST AND LOCKED POSITION, SIDE RAILS UP X2, WILL CONTINUE TO MONITOR FOR ANY CHANGES.
[2019-02-26 08:00] VITALS: BP 106/56
[2019-02-26] MEDS: ESCITALOPRAM OXALATE (10 MG) 10 MG TABLET PO SCH (08:16)
[2019-02-26] MEDS: ARIPIPRAZOLE 5 MG TABLET PO SCH (08:16)
[2019-02-26] MEDS: DOCUSATE SODIUM 100 MG CAPSULE PO SCH ×2 (08:16→17:13)
[2019-02-26] MEDS: ALPRAZOLAM 1 MG TABLET PO SCH ×3 (08:17→17:13)
[2019-02-26] MEDS: MUPIROCIN OINT 2% 22 GM TUBE SCH ×2 (08:26→20:18)
[2019-02-26] MEDS: LEVETIRACETAM (250 MG) 250 MG TABLET PO SCH ×2 (08:26→20:13)
[2019-02-26] MEDS: TOPIRAMATE 25 MG TABLET PO SCH (08:38)
--- NOTE | 2019-02-26 10:46 | NUR ---
PATIENT IS REFUSING IV VANCOMYCIN. PT STATES THAT WHEN IT WAS LAST ADMINISTERED IT WAS BURNING AT THE IV SITE. WILL LET DR. BASHIR KNOW.
[2019-02-26] MEDS: CEFEPIME 1 GM in IV D5W 50 ML IV SCH ×2 (12:14→23:02)
--- NOTE | 2019-02-26 13:25 | NUR ---
RN NOTES PACKING ON SURGICAL SITE OF RECTAL ABSCESS THAT WAS DRAINED 02/25/[address] OF [address]. PT WAS FOUND WAS RESTING IN BED WITH CHUCKS SATURATED IN SEROUS FLUID. OLD DRESSING WAS REMOVED AND WAS REPACKED WITH KERLIX. PT TOLERATED WELL, WILL CONTINUE TO MONITOR FOR ANY CHANGES.
--- NOTE | 2019-02-26 17:48 | NUR ---
PATIENT HAS REFUSED 1600 VITALS Addendum: 02/26/19 at 1757 by TAMARA PRATT RN Amended: Links added.
--- NOTE | 2019-02-26 19:16 | NUR ---
RN CLOSING NOTES PATIENT IS RESTING COMFORTABLY IN BED. PATIENT HAS REFUSED 2 DOSES OF VANCOMYCIN TODAY, SHE AGREED TO HAVE THE 1800 DOSE. SHE ALSO REFUSED THE 1600 VITALS. PT RECTAL DRESSING WAS CHANGED BECAUSE THE PACKING HAD FALLEN OUT. NO ACUTE CHANGES OCCURRED THROUGHOUT THE SHIFT, VITAL SIGNS JENNY STABLE, PT NEEDS HAVE BEEN MET. SAFETY MEASURES HAVE BEEN IMPLEMENTED, CALL LIGHT IS WITHIN REACH, BED IS IN LOWEST AND LOCKED POSITION, PT HAS BEEN ENDORSED TO NIGHTSHIFT RN.
--- NOTE | 2019-02-26 19:20 | NUR ---
MS RN OPENING NOTES Received patient asleep on bed, on RA, no SOB/respiratory distress noted at this time. No s/sx of discomfort noted. With patent SABINO midline with NS infusing well @ 75ml/hr. Kept on bed clean, dry and comfortable. On fall and aspiration precautions. Call light within easy reach. Will continue to monitor accordingly.
[2019-02-26 20:00] VITALS: BP 124/78
[2019-02-26] MEDS: QUETIAPINE FUMARATE 100 MG TABLET PO SCH (21:51)
[2019-02-26] MEDS: IV NS 0.9% 1,000 ML IV PRN (23:03)
[2019-02-27] MEDS: VANCOMYCIN 0.75 GM in IV D5W 250 ML IV SCH ×3 (01:42→18:00)
[2019-02-27 04:00] VITALS: BP 108/64
--- NOTE | 2019-02-27 06:13 | NUR ---
MS RN CLOSING NOTES Patient asleep, easily awaken. On RA, no respiratory distress, no s/sx of discomfort noted at this time. All nursing needs attended, all due meds given as ordered. No new complaints made. Afebrile throughout the shift, medicated for complaints of rectal pain, noted effective. Kept on bed clean, dry and comfortable. On fall and aspiration precautions. Call light within easy reach. Endorsed to the next shift.
[2019-02-27 08:00] VITALS: BP_SYST 130; BP_DIAS 72; BP_DIAS 76
[2019-02-27] MEDS: ALPRAZOLAM 1 MG TABLET PO SCH ×3 (08:57→16:55)
[2019-02-27] MEDS: DOCUSATE SODIUM 100 MG CAPSULE PO SCH ×2 (08:57→16:55)
[2019-02-27] MEDS: ARIPIPRAZOLE 5 MG TABLET PO SCH (08:57)
[2019-02-27] MEDS: ESCITALOPRAM OXALATE (10 MG) 10 MG TABLET PO SCH (08:57)
[2019-02-27] MEDS: TOPIRAMATE 25 MG TABLET PO SCH (08:57)
[2019-02-27] MEDS: MUPIROCIN OINT 2% 22 GM TUBE SCH (08:58)
[2019-02-27] MEDS: HYDROMORPHONE INJ 2 MG/ML DISP.SYRIN IV PRN (08:58)
[2019-02-27] MEDS: LEVETIRACETAM (250 MG) 250 MG TABLET PO SCH (08:59)
[2019-02-27] MEDS ORDERED: CIPR-262 PO (10:46)
[2019-02-27] MEDS ORDERED: CLIN300C11 PO (10:46)
[2019-02-27] MEDS: CEFEPIME 1 GM in IV D5W 50 ML IV SCH (11:09)
--- NOTE | 2019-02-27 15:44 | NUR ---
PHONG along with case management assistant ABIDA Estrada and CARINE Dueñas met with the pt. bedside to discuss discharge plan. Pt. was offered placement at a [facility] but refused. Pt. receives $900 per month in SSDI but does not want to pay. Pt. is homeless and states she has a named Kavya who has not visited the pt. at [facility]. Pt. began getting frustrated and stated she [facility]. PHONG informed her that SW will have to fax clinicals to [facility] for acceptance. Pt. stated, I don't want to wait and I will just leave. PHONG tried to explain to the pt. that she is still on IV antibiotics. Pt. began crying and stated, I need clothes. SW to provide pt. with appropriate clothing and shoes. Pt. might be choosing to leave AMA.
--- NOTE | 2019-02-27 16:15 | NUR ---
PHONG met with pt. again due to being distraught about not knowing where her is. PHONG provided pt. with emotional support. Pt. agreed to go to a board and care PHONG contacted Viola and informed her that pt. is willing to go. PHONG informed Viola to follow up with case operator Sean regarding discharge. PHONG updated ABIDA Estrada and CARINE Dueñas.
--- NOTE | 2019-02-27 18:38 | NUR ---
RN NOTE: PATIENT REMAINS ALERT AWAKE ORIENTED X 4. ON ROOM AIR, NO BREATHING DISTRESS NOTED. C/O PAIN AT INCISION SITE. DRESSING CHANGED TO [facility] RECTAL I & D SITE. PATIENT REFUSED TO DO PACKING & SITZ BATH TODAY. PATIENT REFUSED IV FLUIDS & IV ATBs, EDUCATION GIVEN, PATIENT START YELLING, SCREAMING. PMD MADE AWARE. SAFETY MEASURES OBSERVED. AMBULATORY, STEADY GAIT. PATIENT REFUSED TO CHECK VITAL SIGNS WELL. ENCOURAGE PATIENT TO USE CALL LIGHT FOR ASSISTANCE. CONTINUE WITH PLAN OF CARE. PLAN TO DISCHARGE TO [facility]IV[facility] WHEN BED AVAILABLE PER CM.
--- NOTE | 2019-02-27 21:50 | NUR ---
Board and care admin Peyton is here to meat pickler patient. Nurse reports that patient has homehealth order for rectal abscess wound care. Spoke with Radha after hours NCM @ [facility] , will have their dc brand planner arrange homehealth tomorrow. Faxed order and clinicals to [facility] dc brand planner [phone]. Addendum: 02/27/19 at 2151 by MICHEAL BOYD RN Amended: Links added.
== END 2019-02-27 22:02 | disposition home or self-care (01) | DRG 720 ==
LOC: ER 12:09 → MEDSG1 15:05
PROVIDERS: ADMIT Hospitalist; ATTEND Hospitalist
PROC: 05HC33Z Insertion of Infusion Device into Left Basilic Vein, Percutaneous Approach (ICD-10-PCS; principal; 2019-02-25)
PROC: 3E10X8Z Irrigation of Skin and Mucous Membranes using Irrigating Substance (ICD-10-PCS; principal; 2019-02-25)
DX: A41.9 Sepsis, unspecified organism (principal); E43 Unspecified severe protein-calorie malnutrition; R56.9 Unspecified convulsions; E87.1 Hypo-osmolality and hyponatremia; F20.9 Schizophrenia, unspecified; K61.1 Rectal abscess; L03.311 Cellulitis of abdominal wall; F32.9 Major depressive disorder, single episode, unspecified; Z88.0 Allergy status to penicillin; Z88.2 Allergy status to sulfonamides; Z88.8 Allergy status to other drugs, medicaments and biological substances; Z79.899 Other long term (current) drug therapy; K59.00 Constipation, unspecified; E66.01 Morbid (severe) obesity due to excess calories; Z91.19 Patient's noncompliance with other medical treatment and regimen; Z91.14 Patient's other noncompliance with medication regimen; Z72.0 Tobacco use; Z22.322 Carrier or suspected carrier of Methicillin resistant Staphylococcus aureus; D64.9 Anemia, unspecified; R74.0 Nonspecific elevation of levels of transaminase and lactic acid dehydrogenase [LDH]; Z68.36 Body mass index [BMI] 36.0-36.9, adult
CPT/HCPCS: 36415; 71045-TC; 80048-TC; 80053-TC; 80076-TC; 80202-TC; 83605-TC; 83735-TC; 84100-TC; 84703-TC; 85025-TC; 85730-TC; 86850-TC; 87040-TC; 87081-TC; 97116-TC; 97530-TC; A6253; G0378; J0692; J1170; J2250; J2270; J2405; J2704; J2765; J3010; J3370; J3490; J7030; J7040; J7050; J7060; Q9967